=== PATIENT | male | born 1950 | race Caucasian/White ===

== ENCOUNTER 2016-09-25 10:05 | Outpatient (CLI) | payer BC ==
[2016-09-25 11:33] LABS: #Basophils 0.1 thou/uL (0.0-0.2); #Eosinphils 0.2 thou/uL (0.0-0.7); #Lymphocytes 1.7 thou/uL (1.20-3.40); #Monocytes 0.6 thou/uL (0.11-0.59); #Neutrophils 4.9 thou/uL (1.40-6.50); %Basophils 0.8 % (0.0-1.0); %Eosinophils 3.2 % (0.0-10.0); %Lymphocytes 23.3 % (21.0-51.0); %Monocytes 7.4 % (0.0-10.0); %Neutrophils 65.4 % (42.0-75.0); Mean Corpuscular Hemoglobin 31.2 pg (27.0-31.0); Mean Corpuscular Volume 89.2 fl (80.0-94.0); Mean Platelet Volume 5.8 fL (7.4-10.4); Platelet Count 297 thou/uL (130-400); RBC Distribution Width 12.2 % (11.5-14.5); Red Blood Cell (RBC) Count 4.81 mill/uL (4.70-6.10); White Blood Cell (WBC) Count 7.4 thou/uL (4.8-10.8)
[2016-09-25 11:47] LABS: ALT (SGPT) 22 U/L (0-55); AST (SGOT) 20 U/L (5-34); Albumin 4.3 g/dL (3.4-4.8); Alkaline Phosphatase 78 U/L (40-150); Anion Gap 13 mmol/L (10-20); BUN (Urea Nitrogen) 22 mg/dL (8.4-25.7); Bilirubin, Total 0.7 mg/dL (0.2-1.2); Calc. Creatinine Clearance 0 mL/min (70-130); Calcium 9.4 mg/dL (7.8-10.44); Carbon Dioxide 27 mmol/L (23-31); Chloride 103 mmol/L (98-107); Cholesterol 198 mg/dL (< 200 Desired); Estimated GFR-MDRD 58; Globulin 3.1 g/dL (2.4-3.5); Glucose 108 mg/dL (80-115); HDL Cholesterol 40 mg/dL (>60 Neg Risk); LDL Cholesterol, Calculated 130 mg/dL; Potassium 4.3 mmol/L (3.5-5.1); Protein, Total 7.4 g/dL (5.8-8.1); Sodium 139 mmol/L (136-145); Triglycerides 142 mg/dL (Less than 150)
[2016-09-25 11:50] LABS: Hemoglobin A1c 6.3 % (4.0-6.0)
== END 2016-09-25 10:06 | disposition home or self-care (01) ==
LOC: HPCALD 10:05
PROVIDERS: ATTEND Family Medicine
DX: E11.9 Type 2 diabetes mellitus without complications (principal); I10 Essential (primary) hypertension
CPT/HCPCS: 36415; 80053; 80061; 83036; 85025

== ENCOUNTER 2016-12-03 05:21 | Emergency (ER) | payer BC, MEDICARE ==
[2016-12-03 06:04] LABS: #Eosinphils 0.1 thou/uL (0.0-0.7); #Lymphocytes 1.3 thou/uL (1.20-3.40); #Monocytes 0.7 thou/uL (0.11-0.59); #Neutrophils 9.4 thou/uL (1.40-6.50); %Basophils 0.3 % (0.0-1.0); %Lymphocytes 11.2 % (21.0-51.0); %Neutrophils 81.5 % (42.0-75.0); Hemoglobin 16.7 g/dL (14.0-18.0); Mean Corpuscular HGB CONC 36.2 g/dL (32.0-36.0); Mean Corpuscular Hemoglobin 31.4 pg (27.0-31.0); Mean Corpuscular Volume 86.8 fl (80.0-94.0); Mean Platelet Volume 5.7 fL (7.4-10.4); Platelet Count 340 thou/uL (130-400); RBC Distribution Width 12.9 % (11.5-14.5); Red Blood Cell (RBC) Count 5.32 mill/uL (4.70-6.10); White Blood Cell (WBC) Count 11.6 thou/uL (4.8-10.8)
[2016-12-03 06:11] LABS: PTT 33.8 SEC (22.9-36.1); Prothrombin Time 13.3 SEC (12.0-14.7)
[2016-12-03 06:19] LABS: ALT (SGPT) 21 U/L (8-55); AST (SGOT) 16 U/L (5-34); Albumin 4.4 g/dL (3.4-4.8); Alkaline Phosphatase 83 U/L (40-150); Anion Gap 17 mmol/L (10-20); BUN (Urea Nitrogen) 24 mg/dL (8.4-25.7); Bilirubin, Total 0.7 mg/dL (0.2-1.2); Calc. Creatinine Clearance 0 mL/min (70-130); Calcium 9.6 mg/dL (7.8-10.44); Carbon Dioxide 25 mmol/L (23-31); Chloride 98 mmol/L (98-107); Estimated GFR-MDRD 51; Globulin 3.8 g/dL (2.4-3.5); Glucose 177 mg/dL (80-115); Lipase 20 U/L (8-78); Potassium 4.4 mmol/L (3.5-5.1); Protein, Total 8.2 g/dL (5.8-8.1); Sodium 136 mmol/L (136-145)
[2016-12-03 06:20] LABS: CKMB 2.4 ng/mL (0-6.6); Troponin I Less than 0.010 ng/mL (< 0.028)
[2016-12-03 07:00] LABS: Bilirubin Negative (Negative); Blood, Urine Negative (Negative); Clarity Clear (Clear); Glucose, Urine (Dipstick) Negative (Negative); Leukocyte Negative (Negative); Nitrite Negative (Negative); Protein, Urine (Dipstick) 30 mg/dL (Neg-Trace); Urobilinogen 0.2 mg/dL (0.2-1.0)
[2016-12-03 07:04] LABS: Bacteria/HPF None Seen HPF (None Seen); RBC/HPF None Seen HPF (0-3); Squamous Epithelial 0-3 HPF (0-3); WBC/HPF None Seen HPF (0-3)
[2016-12-03] MEDS ORDERED: Iopamidol 370 76% 100 ML VIAL ONE (09:00)
--- NOTE | 2016-12-03 09:30 | RAD ---
PORTABLE CHEST: Date: 12/03/16 An AP portable film at 0603 hours is compared with a 07/23/15 study. FINDINGS: The heart is normal in size today. There is no vascular congestion, edema, or pleural effusion. A ri ght-sided central venous line is in place as before. Its tip is in the vicinity of the lower superio r vena cava. The trachea is midline. IMPRESSION: No acute thoracic finding. POS: HOME
--- NOTE | 2016-12-03 14:56 | CT ---
PRELIMINARY REPORT/[facility]/EMERGENCY AFTER HOURS PROCEDURE: EXAM: CT Abdomen and Pelvis With Intravenous Contrast CLINICAL HISTORY: 66 years old, male; Pain; Abdominal pain; Periumbilical; Prior surgery; Surgery date: 6+ months; Ole marek type: Cancerous tumor removed; Patient HX: Er2 *iv contrast only* pt C/O: Pt woke up yesterday morning at 0400 with abd pain, went to work, pain did not subside, has only increased through the ni ght. Pt states pain is in the periumbicial region and that it is sharp and "shooting" in nature, pain is intermittent with vomiting, pt with HX of rectal ca TECHNIQUE: Axial computed tomography images of the abdomen and pelvis with intravenous contrast. COMPARISON: No relevant prior studies available. FINDINGS: Lower thorax: No acute findings. ABDOMEN: Liver: Unremarkable. Gallbladder and bile ducts: Unremarkable. No calcified stones. No ductal dilation. Pancreas: Unremarkable. Spleen: Unremarkable. Adrenals: Unremarkable. Kidneys and ureters: Unremarkable. Stomach and bowel: The small bowel is dilated measuring up to 3.1 cm in diameter. There is a transit ion point at the surgical anastomosis in the right mid abdomen. A short segment of the small bowel d istal to the transition point is collapsed. There is a moderate amount of stool in the colon. Appendix: The appendix is unremarkable. PELVIS: Bladder: Unremarkable. No mass. Reproductive: Unremarkable as visualized. Subperitoneal space: Presacral soft tissue contains calcifications and possibly surgical sutures. ABDOMEN and PELVIS: Intraperitoneal space: There is a small amount of free fluid. Bones/joints: There are degenerative changes in the spine. No acute fracture. No dislocation. Soft tissues: Unremarkable. Vasculature: Calcifications in the roque of the aorta and other arteries are consistent with atheros clerosis. No abdominal aortic aneurysm or dissection is identified. Lymph nodes: Unremarkable. No enlarged lymph nodes. IMPRESSION: 1. Small bowel obstruction with transition point at surgical anastomosis in the distal bowel. 2. Presacral soft tissue that may be due to scarring or neoplasm. 3. Additional findings as above. Thank you for allowing us to participate in the care of your patient. Dictated and Authenticated by: Rafal Vasquez MD 12/03/2016 7:44 AM Central Time ([place] \\T\\ Emma) FINAL REPORT CT ABDOMEN AND PELVIS WITH CONTRAST: Date: 12-03-16 Technique: Spiral CT of the abdomen and pelvis was performed for evaluation of increasing periumbilical pain. T here is a prior history of resection of rectal carcinoma. Axial slices were acquired after giving or al and IV contrast. Comparison: 06-06-11 FINDINGS: The major finding on this study is dilatation of small bowel, with some loops of up 3 cm in diameter . They are fluid filled. There is a transition point in the distal small bowel where one sees some s urgical sutures from a prior procedure. A very short segment of collapsed small bowel is seen after this, right before the ileocecal junction. The colon is not distended. Fecal material is present in the colon. No free air or free fluid was seen in the abdomen. The findings are consistent with a dis jose manuel small bowel obstruction around the area of the prior surgical anastomosis. The lung bases are clear. The liver, spleen, pancreas, gallbladder, adrenal glands, kidneys, and abd ominal aorta all showed no acute findings. Arterial sclerotic change is present in the aorta. CT of the pelvis shows no pelvic mass or free fluid. There is thickening of the soft tissues in the presacral region around prior operative site along with some calcification in the tissues. This thic kening was noted on the 2011 CT abdomen/pelvis and does not see any more so now than before. Thus, i t seems more likely that this is post-operative in nature than any currently pathologic. There is si gnificant degenerative changes in the lumbar spine, especially at the L4-5 and L5-S1 levels. IMPRESSION: 1. Findings consistent with a distal small bowel obstruction near the site of surgical anastomosis i n the right lower abdomen. 2. Presacral soft tissue thickening that does not seem any worse than it appeared in 2011. Findings in agreement with preliminary reading by EMMANUEL. POS: HOME
== END 2016-12-03 08:22 | disposition short-term general hospital (02) ==
LOC: BURERS 05:21
DX: K56.60 Unspecified intestinal obstruction (principal); E11.9 Type 2 diabetes mellitus without complications; I10 Essential (primary) hypertension; Z79.899 Other long term (current) drug therapy; Z79.84 Long term (current) use of oral hypoglycemic drugs
CPT/HCPCS: 36415; 71010; 74177; 80053; 81003; 81015; 82553; 83605; 83690; 84484; 85025; 85610; 85730; 93005; 94760; A4216

== ENCOUNTER 2021-01-29 18:47 | Emergency (ER) | payer MEDICARE, BC ==
[2021-01-29] MEDS ORDERED: Sulfameth/Trimethoprim DS 800-160mg TAB ONE (19:25)
[2021-01-29] MEDS ORDERED: Cephalexin 250 MG CAP ONE (19:25)
[2021-01-29] MEDS ORDERED: predniSONE 20 MG TAB ONE (19:25)
== END 2021-01-29 19:32 | disposition home or self-care (01) ==
LOC: BURERS 18:47
DX: L03.115 Cellulitis of right lower limb (principal); I10 Essential (primary) hypertension; E11.9 Type 2 diabetes mellitus without complications; Z79.84 Long term (current) use of oral hypoglycemic drugs; Z79.899 Other long term (current) drug therapy
CPT/HCPCS: 99283; J7512

== ENCOUNTER 2022-01-12 09:30 | Emergency (ER) | payer MEDICARE, OTHER ==
[2022-01-12] MEDS ORDERED: diphenhydrAMINE 25 MG CAP ONE (10:03)
[2022-01-12] MEDS ORDERED: Metoclopramide HCl 10 MG/2 ML VIAL ONE (10:03)
[2022-01-12] MEDS ORDERED: diphenhydrAMINE 50 MG/ML VIAL ONE (10:03)
[2022-01-12] MEDS ORDERED: Ketorolac Tromethamine 30 MG/ML VIAL ONE (10:03)
[2022-01-12 10:12] LABS: #Basophils 0.1 thou/uL (0.0-0.2); #Eosinphils 0.4 thou/uL (0.0-0.7); #Lymphocytes 1.4 thou/uL (1.20-3.40); #Monocytes 0.8 thou/uL (0.11-0.59); #Neutrophils 9.2 thou/uL (1.40-6.50); %Basophils 0.5 % (0.0-1.0); %Eosinophils 3.1 % (0.0-10.0); %Neutrophils 77.4 % (42.0-75.0); Hemoglobin 12.6 g/dL (14.0-18.0); Mean Corpuscular HGB CONC 34.7 g/dL (32.0-36.0); Mean Corpuscular Hemoglobin 30.9 pg (27.0-31.0); Mean Corpuscular Volume 89.1 fL (78.0-98.0); Mean Platelet Volume 5.8 fL (7.4-10.4); Platelet Count 291 thou/uL (130-400); RBC Distribution Width 13.2 % (11.5-14.5); Red Blood Cell (RBC) Count 4.09 mill/uL (4.70-6.10); White Blood Cell (WBC) Count 11.9 thou/uL (4.8-10.8)
[2022-01-12 10:16] LABS: Prothrombin Time 13.8 sec (12.0-14.7)
[2022-01-12 10:23] LABS: ALT (SGPT) 31 U/L (8-55); AST (SGOT) 27 U/L (5-34); Alkaline Phosphatase 78 U/L (40-110); Anion Gap 14 mmol/L (10-20); BUN (Urea Nitrogen) 24 mg/dL (8.4-25.7); Bilirubin, Total 0.7 mg/dL (0.2-1.2); Calc. Creatinine Clearance 0 mL/min (70-130); Calcium 8.8 mg/dL (7.8-10.44); Carbon Dioxide 28 mmol/L (23-31); Chloride 100 mmol/L (98-107); Estimated GFR 51; Globulin 2.7 g/dL (2.4-3.5); Glucose 163 mg/dL (83-110); Potassium 4.6 mmol/L (3.5-5.1); Protein, Total 6.7 g/dL (5.8-8.1); Sodium 137 mmol/L (136-145)
== END 2022-01-12 11:16 | disposition home or self-care (01) ==
LOC: BURERS 09:30
DX: S29.012A Strain of muscle and tendon of back wall of thorax, initial encounter (principal); G43.909 Migraine, unspecified, not intractable, without status migrainosus; I10 Essential (primary) hypertension; E11.9 Type 2 diabetes mellitus without complications; Z79.84 Long term (current) use of oral hypoglycemic drugs; X50.0XXA Overexertion from strenuous movement or load, initial encounter
CPT/HCPCS: 36415; 71045; 80053; 84484; 85025; 85610; 93005; 96374; 96375; J1200; J1885; J2765

== ENCOUNTER 2023-01-28 17:14 | Emergency (ER) | payer MEDICARE ==
[2023-01-28 17:43] LABS: #Eosinphils 0.4 thou/uL (0.0-0.7); #Lymphocytes 1.4 thou/uL (1.20-3.40); #Monocytes 0.3 thou/uL (0.11-0.59); #Neutrophils 4.2 thou/uL (1.40-6.50); %Basophils 0.6 % (0.0-1.0); %Eosinophils 6.3 % (0.0-10.0); %Lymphocytes 21.7 % (21.0-51.0); %Monocytes 4.7 % (0.0-10.0); %Neutrophils 66.7 % (42.0-75.0); Hemoglobin 11.5 g/dL (14.0-18.0); Mean Corpuscular Hemoglobin 28.3 pg (27.0-31.0); Mean Corpuscular Volume 88.4 fl (78.0-98.0); Platelet Count 350 10x3/uL (130-400); RBC Distribution Width 12.4 % (11.5-14.5); Red Blood Cell (RBC) Count 4.07 mill/uL (4.70-6.10); White Blood Cell (WBC) Count 6.4 10x3/uL (4.8-10.8)
[2023-01-28 17:58] LABS: ALT (SGPT) 18 U/L (8-55); AST (SGOT) 12 U/L (5-34); Albumin 3.8 g/dL (3.4-4.8); Alkaline Phosphatase 115 U/L (40-110); Anion Gap 18 mmol/L (10-20); BUN (Urea Nitrogen) 26 mg/dL (8.4-25.7); Bilirubin, Total 0.4 mg/dL (0.2-1.2); Calc. Creatinine Clearance 0 mL/min (70-130); Carbon Dioxide 22 mmol/L (23-31); Chloride 101 mmol/L (98-107); Estimated GFR 39; Globulin 3.3 g/dL (2.4-3.5); Glucose 389 mg/dL (83-110); Potassium 4.5 mmol/L (3.5-5.1); Protein, Total 7.1 g/dL (5.8-8.1); Sodium 136 mmol/L (136-145)
== END 2023-01-28 18:54 | disposition home or self-care (01) ==
LOC: BURERS 17:14
DX: R07.89 Other chest pain (principal); E78.2 Mixed hyperlipidemia; I10 Essential (primary) hypertension; E11.9 Type 2 diabetes mellitus without complications
CPT/HCPCS: 36415; 71045; 80053; 84484; 85025; 93005